=== PATIENT | female | born 1965 | race Caucasian/White ===

== ENCOUNTER 2021-02-09 18:01 | Emergency (ER) | payer BC ==
[~2021-02-09] VITALS: Ht 162.6 cm; Wt 56.4 kg
[~2021-02-09 18:01] MED LIST: ALBU8.5H17 IH; ESCI20TA PO
[2021-02-09] MEDS ORDERED: ALPR0.5T9 PO (18:57)
[2021-02-09] MEDS ORDERED: FLUT16SP20 BOTHNARES (18:57)
[2021-02-09] MEDS ORDERED: BUPR300T86 PO (18:57)
[2021-02-09] MEDS ORDERED: DULO60CA65 PO (18:57)
[2021-02-09] MEDS ORDERED: THYR90TA12 PO (18:57)
[2021-02-09] MEDS ORDERED: MELO-102 PO (18:57)
[2021-02-09] MEDS ORDERED: GABA600T13 PO (18:57)
[2021-02-09 19:25] LABS: BASOPHILS # (AUTO) 0.1 X10'3 (0-0.2); BASOPHILS % (AUTO) 1.3 % (0-1); EOSINOPHILS # (AUTO) 0.1 X10'3 (0-0.9); EOSINOPHILS % (AUTO) 2.6 % (0-6); HEMATOCRIT 38.8 % (35.0-45.0); HEMOGLOBIN 13.2 g/dl (12.0-16.0); MEAN CORPUSCULAR HEMOGLOBIN 30.5 PG (27.0-31.0); MEAN CORPUSCULAR VOLUME 89.8 FL (78-98); MEAN PLATELET VOLUME 7.8 FL (7.4-10.4); MONOCYTES # (AUTO) 0.5 X10'3 (0-0.9); MONOCYTES % (AUTO) 9.1 % (2-12); NEUTROPHILS # (AUTO) 2.6 X10'3 (1.8-7.7); PLATELET COUNT 239 X10'3 (140-440); RED BLOOD COUNT 4.32 X10'6 (4.20-5.60); RED CELL DISTRIBUTION WIDTH 13.7 % (11.5-14.5); WHITE BLOOD COUNT 5.3 X10'3 (4.5-11.0)
[2021-02-09 19:31] LABS: ALANINE AMINOTRANSFERASE 22 U/L (12-78); ALBUMIN 4.3 G/DL (3.4-5.0); ALBUMIN/GLOBULIN RATIO 1.3 (1.1-1.5); ALKALINE PHOSPHATASE 41 IU/L (46-116); ANION GAP 9 (8-16); ASPARTATE AMINO TRANSFERASE 15 U/L (10-37); BILIRUBIN,TOTAL 0.3 MG/DL (0.1-1.0); BLOOD UREA NITROGEN 12 MG/DL (7-18); BUN/CREATININE RATIO 14.1 (6.6-38.0); CHLORIDE 104 MMOL/L (99-107); CREATININE 0.85 MG/DL (0.40-0.90); GLUCOSE 77 MG/DL (70-104); POTASSIUM 3.5 MMOL/L (3.5-5.1); SODIUM 140 MMOL/L (135-145); TOTAL CARBON DIOXIDE 27.3 MMOL/L (24-32); TOTAL PROTEIN 7.7 G/DL (6.4-8.2); eGFR 69 ML/MIN
[2021-02-09 19:37] LABS: URINE AMPHETAMINE SCREEN NEGATIVE (Neg); URINE BARBITUATE SCREEN NEGATIVE (Neg); URINE BENZODIAZEPINES SCREEN POSITIVE (Neg); URINE CANNABINOID SCREEN NEGATIVE (Neg); URINE COCAINE SCREEN NEGATIVE (Neg); URINE METHADONE SCREEN NEGATIVE (Neg); URINE OPIATE SCREEN NEGATIVE (Neg); URINE PHENCYCLIDINE SCREEN NEGATIVE (Neg)
--- NOTE | 2021-02-09 19:37 | NUR ---
Sister to take all of patient belognings. patient in green scrubs, room stripped. patient very cooperative.
[2021-02-09 19:42] LABS: ETHANOL < 0.010 GM/DL (0.0-0.010)
[2021-02-09 19:48] LABS: CLARITY,URINE CLEAR (Clear); COLOR,URINE YELLOW (Yellow); PH,URINE 7.5 (4.8-8.0); UA COLLECTION TYPE CLN CATCH MIDSTREAM
[2021-02-09 19:50] LABS: GLUCOSE, URINE NEGATIVE (Neg); KETONES,URINE NEGATIVE (Neg); LEUKOCYTE ESTERASE ,URINE NEGATIVE (Neg); NITRITES, URINE NEGATIVE (Neg); OCCULT BLOOD,URINE NEGATIVE (Neg); PROTEIN,URINE NEGATIVE (Neg); UROBILINOGEN,URINE 0.2 E.U/dL (0.2-1.0)
[2021-02-09] MEDS ORDERED: ALPRAZolam 0.5mg tablet PO ONE (20:15)
[2021-02-09] MEDS ORDERED: diphenhydrAMINE 25mg capsule PO ONE (20:15)
--- NOTE | 2021-02-09 20:21 | NUR ---
EMERSON (SISTER) AND NAKITA ( SISTER) [phone]
--- NOTE | 2021-02-09 21:07 | NUR ---
Mother Sharon called
--- NOTE | 2021-02-09 22:26 | NUR ---
Packet sent to [facility]
--- NOTE | 2021-02-10 00:20 | NUR ---
The patient appears to be sleeping
[2021-02-10] MEDS ORDERED: albuterol 2.5 MG/3 ML nebule NEB PRN (01:00)
--- NOTE | 2021-02-10 01:50 | NUR ---
The patient appears to be sleeping
--- NOTE | 2021-02-10 02:43 | NUR ---
The patient is up to use the bathroom
--- NOTE | 2021-02-10 03:43 | NUR ---
The patient appears to be sleeping at this time. Was awake earlier and asked for/received another blanket.
--- NOTE | 2021-02-10 05:09 | NUR ---
The patient appears to be sleeping
--- NOTE | 2021-02-10 07:00 | NUR ---
Received Pt in bed sleeping w/o distress.
[2021-02-10] MEDS: thyroid, pork 30mg tablet PO SCH (07:44)
[2021-02-10] MEDS: gabapentin 300mg capsule PO SCH ×3 (07:44→19:57)
[2021-02-10] MEDS: duloxetine 30mg CAPSULE.DR PO SCH (07:44)
[2021-02-10] MEDS: ALPRAZolam 0.5mg tablet PO SCH ×2 (07:44→19:57)
[2021-02-10] MEDS: fluticasone nasal spray 16GM bottle NS SCH (08:00)
[2021-02-10] MEDS: buPROPion SR 150mg tablet PO SCH ×2 (08:55→19:57)
--- NOTE | 2021-02-10 09:00 | NUR ---
Pt woke and took AM meds. Pt reports feeling anxious and depressed and discussed multiple life stressors. Pt ate breakfast.
--- NOTE | 2021-02-10 10:15 | NUR ---
Pt talking with visitor and interacting appropriately.
--- NOTE | 2021-02-10 13:30 | NUR ---
Pt ate lunch and continues to talk with visitor.
--- NOTE | 2021-02-10 16:15 | NUR ---
Pt took short nap with visitor present. Pt has had multiple visitors, friends and therapist. [facility] has placed Pt on 5150 hold.
--- NOTE | 2021-02-10 17:55 | NUR ---
Pt very engagable and talks about many ways she "can't beleive i'm in this situation at 56 yrs old". Pt remains depressed and anxious.
--- NOTE | 2021-02-10 19:38 | NUR ---
The patient is resting on her bed and visiting with a female visitor. She stated that off and on during the day she has had episodes of very high anxiety. She stated that she is feeling sad and that earlier in the day she has had suicidal thoughts. She reports that her concentration and focus have not been as good as at her baseline. She is alert, oriented and motivated for treatment. The patient is aware that she is on a 5150 hold and that an inpatient unit is being sought for her.
--- NOTE | 2021-02-10 20:14 | NUR ---
The patient complaining of high anxiety and HS medications given.
[2021-02-10] MEDS ORDERED: diphenhydrAMINE 25mg capsule PO ONE (20:50)
--- NOTE | 2021-02-10 21:45 | NUR ---
Nurse to nurse with Alina PACKER at [facility]. She stated that the patient was accepted at their facility for a ETA of noon.
--- NOTE | 2021-02-10 22:00 | NUR ---
Received an angry phone call from patient's mother demanding that she not be transported any where out of the area. She stated that she had been working with the marketing technology specialist and was assured that she could be admitted upstairs. She was given the number of the [facility] and it was explained to her that they are the ones working on her placement. Earlier in the evening the [facility] unit had been contacted and they stated that the patient had been declined 2nd to insurance issues. Received a call soon after talking to the mother from [facility] [phone] who stated she was the hospital marketing technology specialist and that the patient was not to be transferred out of the area and that the patient had been approved by the MACHINE LEATHER TRIMMER to be admitted to [facility]. Call to [facility] and talked with the conveyor line battery charger, Lala Olivia and she has not been informed that the patient was to be admitted and that she had been told the patient was declined in shift report 2nd to insurance issues. Spoke with [facility] and made them aware and they had no information other than that the patient had been declined at [facility]. Spoke with nursing grinding supervisor, Cayetano and he stated he had no information that the patient was to be accepted at [facility] and he stated that administration would have to be contacted in the morning. [facility] stated that will wait to cancel her bed at the [facility] until they hear from [facility] about her being admitted to [facility].
--- NOTE | 2021-02-10 22:27 | NUR ---
The patient appears to be sleeping
--- NOTE | 2021-02-11 00:53 | NUR ---
The patient appears to be sleeping
--- NOTE | 2021-02-11 01:53 | NUR ---
The patient appears to be sleeping
--- NOTE | 2021-02-11 03:54 | NUR ---
The patient appears to be sleeping
--- NOTE | 2021-02-11 05:26 | NUR ---
THe patient has appeared to sleep all night but was up to the nursing station at approximately 0515 requesting sleep medication. She was made aware of the time
[2021-02-11 05:48] VITALS: BP 120/68
[2021-02-11] MEDS ORDERED: ALPRAZolam 0.5mg tablet PO ONE (05:55)
[2021-02-11] MEDS ORDERED: buPROPion SR 150mg tablet PO SCH (08:00)
--- NOTE | 2021-02-11 08:10 | NUR ---
Patient resting in bed with breakfast on side table. Patient is very tearful "I just don't know how my life got here, if you knew my story you would feel bad for me". Patient is now aware that her family friend would like her to go to [facility].
[2021-02-11] MEDS: gabapentin 300mg capsule PO SCH (08:18)
[2021-02-11] MEDS: fluticasone nasal spray 16GM bottle NS SCH (08:19)
[2021-02-11] MEDS: duloxetine 30mg CAPSULE.DR PO SCH (08:19)
[2021-02-11] MEDS: thyroid, pork 30mg tablet PO SCH (08:19)
[2021-02-11] MEDS: ALPRAZolam 0.5mg tablet PO SCH (08:19)
--- NOTE | 2021-02-11 09:02 | NUR ---
Received call from Becky at the [facility] office and she informed me that their clinical mitigation supervisor, Daphney Clark claimed that the issue of holding up transfer to [place] is causing a delay in treatment and that their milk wagon driver will be here in 10 minutes to transport to [place].
--- NOTE | 2021-02-11 09:37 | NUR ---
0319 patient discharge to [place], patient aware she is being placed at a PHF that is covered by her insurance. Patient agreed to transfer. Patient discharge via [facility], [id number] and all belonging went with patient.
== END 2021-02-11 09:30 ==
LOC: ER 18:02
DX: R45.851 Suicidal ideations (principal); F41.9 Anxiety disorder, unspecified; F32.9 Major depressive disorder, single episode, unspecified; Z88.0 Allergy status to penicillin; Z88.2 Allergy status to sulfonamides; Z79.899 Other long term (current) drug therapy; Z20.822 Contact with and (suspected) exposure to COVID-19
CPT/HCPCS: 36415; 80053; 80305; 80320; 81003; 84443; 85025; 87635; 99285; C9803; Q0163